=== PATIENT | female | born 1965 | race Caucasian/White ===

== ENCOUNTER 2020-07-25 20:35 | Emergency (ER) | payer MEDICAID ==
[~2020-07-25] VITALS: Ht 152.4 cm; Wt 93.9 kg
[~2020-07-25 20:35] MED LIST: FLUT1DSK19 PO; SINGULAIR
[2020-07-25 20:45] VITALS: BP 129/60
[2020-07-25] MEDS ORDERED: KETOROLAC 30 MG/ML VIAL IM ONE (21:05)
[2020-07-25 22:40] VITALS: BP 130/72
== END 2020-07-25 22:35 | disposition home or self-care (01) ==
LOC: MED 20:35
DX: M79.10 Myalgia, unspecified site (principal); G44.209 Tension-type headache, unspecified, not intractable; M45.2 Ankylosing spondylitis of cervical region
CPT/HCPCS: 70250; 72040; 93005; 96372; 99284; J1885

== ENCOUNTER 2020-08-19 17:48 | Emergency (ER) | payer MEDICAID ==
[~2020-08-19] VITALS: Ht 152.4 cm; Wt 93.4 kg
[2020-08-19 17:52] VITALS: BP 137/83
[2020-08-19 18:24] LABS: BASOPHILS # (AUTO) 0.1 K/uL (0.00-0.22); BASOPHILS % (AUTO) 0.8 % (0.0-2.0); EOSINOPHILS # (AUTO) 0.4 K/uL (0-0.4); EOSINOPHILS % (AUTO) 5.2 % (0.0-4.0); HEMATOCRIT 37.1 % (36-48); HEMOGLOBIN 12.4 g/dL (12.0-16.0); LYMPHOCYTES % (AUTO) 26.2 % (20.5-51.1); MEAN CORPUSCULAR HEMOGLOBIN 30 pg (27-31); MEAN CORPUSCULAR HGB CONC 33 g/dL (33-37); MEAN CORPUSCULAR VOLUME 91.3 fL (80-94); MONOCYTES # (AUTO) 0.8 K/uL (0.8-1.0); MONOCYTES % (AUTO) 10.9 % (1.7-9.3); NEUTROPHILS # (AUTO) 4.3 K/uL (1.8-7.7); NEUTROPHILS % (AUTO) 56.9 % (42.2-75.2); PLATELET COUNT (AUTO) 257 K/uL (140-450); RED BLOOD CELL COUNT(AUTO) 4.06 MIL/uL (4.20-5.40); RED CELL DISTRIBUTION WIDTH 13.9 % (11.6-13.7); WHITE BLOOD COUNT (AUTO) 7.6 K/uL (4.8-10.8)
[2020-08-19] MEDS ORDERED: MORPHINE SULFATE 4 MG/ML SYR IM ONE (18:40)
[2020-08-19] MEDS ORDERED: DICYCLOMINE HCL LIQUID 20 MG, ALUMINUM HYD/MAG/SIMETHICONE 30 ML, LIDOCAINE VISCOUS 2% ... PO ONE ×3 (18:40)
[2020-08-19] MEDS ORDERED: ONDANSETRON 4 MG ODT PO ONE (18:40)
[2020-08-19] MEDS ORDERED: LIDOCAINE VISCOUS 2% 20 ML UDC ONE (18:42)
[2020-08-19] MEDS ORDERED: ALUMINUM HYD/MAG/SIMETHICONE 30 ML UDC ONE (18:42)
[2020-08-19] MEDS ORDERED: DICYCLOMINE HCL LIQUID 10 MG/5 ML UDC ONE (18:43)
[2020-08-19 18:45] LABS: ALBUMIN 3.5 g/dL (3.4-5.0); ANION GAP 10.4 (8-16); CARBON DIOXIDE 29.4 mmol/L (21-32); CREATININE 0.9 mg/dL (0.6-1.3); POTASSIUM 3.8 mmol/L (3.5-5.1); TOTAL BILIRUBIN 0.1 mg/dL (0.0-1.0)
[2020-08-19] MEDS ORDERED: ACET-1182 PO (19:25)
[2020-08-19 19:55] VITALS: BP 155/88
== END 2020-08-19 19:50 | disposition home or self-care (01) ==
LOC: MED 17:48
DX: R07.89 Other chest pain (principal); Z98.890 Other specified postprocedural states
CPT/HCPCS: 36415; 71045; 80053; 83690; 84484; 85025; 93005; 96372; 99285; J2270; Q0162

== ENCOUNTER 2020-09-11 17:16 | Emergency (ER) | payer MEDICAID ==
[~2020-09-11] VITALS: Ht 162.6 cm; Wt 72.6 kg
[~2020-09-11 17:16] MED LIST changes: +ACET-1182 PO
[2020-09-11 17:19] VITALS: BP 153/72
[2020-09-11] MEDS ORDERED: KETOROLAC 30 MG/ML VIAL IM ONE (17:35)
[2020-09-11] MEDS ORDERED: PROCHLORPERAZINE 5 MG TAB PO ONE (18:10)
[2020-09-11 18:23] LABS: BASOPHILS # (AUTO) 0.1 K/uL (0.00-0.22); BASOPHILS % (AUTO) 0.6 % (0.0-2.0); EOSINOPHILS # (AUTO) 0.7 K/uL (0-0.4); EOSINOPHILS % (AUTO) 7.8 % (0.0-4.0); HEMATOCRIT 35.4 % (36-48); HEMOGLOBIN 11.7 g/dL (12.0-16.0); LYMPHOCYTES # (AUTO) 2.6 K/uL (2.5-16.5); LYMPHOCYTES % (AUTO) 31.3 % (20.5-51.1); MEAN CORPUSCULAR HEMOGLOBIN 31 pg (27-31); MEAN CORPUSCULAR HGB CONC 33 g/dL (33-37); MEAN CORPUSCULAR VOLUME 92.3 fL (80-94); MONOCYTES # (AUTO) 0.9 K/uL (0.8-1.0); MONOCYTES % (AUTO) 11.3 % (1.7-9.3); NEUTROPHILS # (AUTO) 4.1 K/uL (1.8-7.7); PLATELET COUNT (AUTO) 230 K/uL (140-450); RED BLOOD CELL COUNT(AUTO) 3.83 MIL/uL (4.20-5.40); RED CELL DISTRIBUTION WIDTH 13.9 % (11.6-13.7); WHITE BLOOD COUNT (AUTO) 8.4 K/uL (4.8-10.8)
[2020-09-11] MEDS ORDERED: PROCHLORPERAZINE 10 MG/2 ML VIAL IVP ONE (18:30)
[2020-09-11 18:35] LABS: ALBUMIN 3.5 g/dL (3.4-5.0); ANION GAP 13.4 (8-16); CARBON DIOXIDE 27.4 mmol/L (21-32); POTASSIUM 3.8 mmol/L (3.5-5.1); TOTAL BILIRUBIN 0.2 mg/dL (0.0-1.0)
[2020-09-11] MEDS ORDERED: NACL 0.9% 1,000 ML IV ONE (20:15)
[2020-09-11] MEDS ORDERED: MORPHINE SULFATE 4 MG/ML SYR IVP ONE (20:15)
[2020-09-11] MEDS ORDERED: ONDANSETRON 4 MG/2 ML VIAL IVP ONE (20:15)
[2020-09-11] MEDS ORDERED: METO-485 PO (21:25)
[2020-09-11] MEDS ORDERED: ACET-8386 PO (21:25)
[2020-09-11 21:52] VITALS: BP 139/69
== END 2020-09-11 21:52 | disposition home or self-care (01) ==
LOC: MED 17:16
DX: R51.9 Headache, unspecified (principal); R07.9 Chest pain, unspecified; Z79.899 Other long term (current) drug therapy
CPT/HCPCS: 36415; 70496; 71045; 80053; 84484; 85025; 93005; 96372; 96374; 96375; 99285; J0780; J1885; J2270; J2405; J7030; Q9967; 96361; Q0164

== ENCOUNTER 2020-11-27 17:02 | Emergency (ER) | payer MEDICAID ==
[~2020-11-27] VITALS: Ht 154.9 cm; Wt 74.4 kg
[~2020-11-27 17:02] MED LIST changes: +ACET-8386 PO; +METO-485 PO
[2020-11-27 17:09] VITALS: BP 149/77
--- NOTE | 2020-11-27 17:10 | NUR ---
PATIENT AMBULATED TO RESTROOM FOR COLLECTION OF URINE
--- NOTE | 2020-11-27 17:17 | NUR ---
PT C/O RUQ ABD PAIN, LOWER BACK PAIN THAT RADIATES TO BILATERAL LEGS X 1 HR. PT DENIES TRAUMA/INJURY. DENIES N/V/D. MEDHX: ANXIETY
--- NOTE | 2020-11-27 17:21 | NUR ---
DR RIVERA AT BEDSIDE EXAMINING PT
--- NOTE | 2020-11-27 17:22 | NUR ---
Dr. Waite is evaluating the patient at bedside.
--- NOTE | 2020-11-27 17:50 | NUR ---
ULTRASOUND AT BEDSIDE
[2020-11-27 18:07] LABS: ALBUMIN 3.4 g/dL (3.4-5.0); ANION GAP 15.8 (8-16); CARBON DIOXIDE 23.6 mmol/L (21-32); POTASSIUM 3.4 mmol/L (3.5-5.1); TOTAL BILIRUBIN 0.2 mg/dL (0.0-1.0)
[2020-11-27 18:10] LABS: BASOPHILS % (AUTO) 0.4 % (0.0-2.0); EOSINOPHILS # (AUTO) 0.3 K/uL (0-0.4); EOSINOPHILS % (AUTO) 2.5 % (0.0-4.0); HEMATOCRIT 36.5 % (36-48); HEMOGLOBIN 12.2 g/dL (12.0-16.0); LYMPHOCYTES # (AUTO) 3.1 K/uL (2.5-16.5); LYMPHOCYTES % (AUTO) 27.9 % (20.5-51.1); MEAN CORPUSCULAR HEMOGLOBIN 30 pg (27-31); MEAN CORPUSCULAR HGB CONC 33 g/dL (33-37); MEAN CORPUSCULAR VOLUME 90.8 fL (80-94); MONOCYTES # (AUTO) 1.1 K/uL (0.8-1.0); NEUTROPHILS # (AUTO) 6.6 K/uL (1.8-7.7); NEUTROPHILS % (AUTO) 59.2 % (42.2-75.2); PLATELET COUNT (AUTO) 270 K/uL (140-450); RED BLOOD CELL COUNT(AUTO) 4.02 MIL/uL (4.20-5.40); RED CELL DISTRIBUTION WIDTH 14.2 % (11.6-13.7); WHITE BLOOD COUNT (AUTO) 11.2 K/uL (4.8-10.8)
--- NOTE | 2020-11-27 18:20 | NUR ---
PATIENT TAKEN TO CT SCAN VIA WHEELCHAIR
[2020-11-27 19:24] LABS: APPEARANCE,URINE CLEAR (CLEAR); BILIRUBIN,URINE NEGATIVE (NEGATIVE); BLOOD, URINE 1+ (NEGATIVE); COLOR,URINE YELLOW (YELLOW); LEUKOCYTE ESTERASE ,URINE NEGATIVE (NEGATIVE); NITRITE, URINE NEGATIVE (NEGATIVE); PH,URINE 5.5 (5.0-9.0); UGLUCOSE NEGATIVE (NEGATIVE)
[2020-11-27 19:29] LABS: WBC,URINE 0-5 /HPF (0-5)
[2020-11-27] MEDS ORDERED: MIRABULK PO (19:56)
[2020-11-27 20:08] VITALS: BP 139/61
--- NOTE | 2020-11-27 20:08 | NUR ---
d/c with [facility]. d/c education given. opportunity to ask questions given and answered. rx of miralax given.
== END 2020-11-27 20:09 | disposition home or self-care (01) ==
LOC: MED 17:02
DX: R10.11 Right upper quadrant pain (principal); M54.6 Pain in thoracic spine; Z90.49 Acquired absence of other specified parts of digestive tract; Z98.890 Other specified postprocedural states; Z79.899 Other long term (current) drug therapy
CPT/HCPCS: 36415; 76705; 80053; 81001; 83690; 85025; 99285

== ENCOUNTER 2021-10-11 14:47 | Emergency (ER) | payer MEDICAID ==
[~2021-10-11] VITALS: Ht 154.9 cm; Wt 92.5 kg
[~2021-10-11 14:47] MED LIST changes: +MIRABULK PO
[2021-10-11 14:52] VITALS: BP 147/78
[2021-10-11] MEDS: KETOROLAC 30 MG/ML VIAL IM ONE (16:22)
[2021-10-11 16:30] LABS: BASOPHILS % (AUTO) 0.4 % (0.0-2.0); EOSINOPHILS # (AUTO) 0.1 K/uL (0-0.4); EOSINOPHILS % (AUTO) 2.2 % (0.0-4.0); HEMATOCRIT 34.3 % (36-48); HEMOGLOBIN 11.4 g/dL (12.0-16.0); LYMPHOCYTES # (AUTO) 1.9 K/uL (2.5-16.5); LYMPHOCYTES % (AUTO) 28.4 % (20.5-51.1); MEAN CORPUSCULAR HEMOGLOBIN 30 pg (27-31); MEAN CORPUSCULAR HGB CONC 33 g/dL (33-37); MEAN CORPUSCULAR VOLUME 89.9 fL (80-94); MONOCYTES % (AUTO) 14.3 % (1.7-9.3); NEUTROPHILS # (AUTO) 3.7 K/uL (1.8-7.7); NEUTROPHILS % (AUTO) 54.7 % (42.2-75.2); PLATELET COUNT (AUTO) 209 K/uL (140-450); RED BLOOD CELL COUNT(AUTO) 3.82 MIL/uL (4.20-5.40); RED CELL DISTRIBUTION WIDTH 14.3 % (11.6-13.7); WHITE BLOOD COUNT (AUTO) 6.7 K/uL (4.8-10.8)
[2021-10-11 16:45] LABS: LIPASE 173 U/L (73-393)
[2021-10-11 16:55] LABS: ALBUMIN 3.3 g/dL (3.4-5.0); ANION GAP 11.8 (8-16); CARBON DIOXIDE 26.9 mmol/L (21-32); CREATININE 0.9 mg/dL (0.6-1.3); POTASSIUM 3.7 mmol/L (3.5-5.1); TOTAL BILIRUBIN 0.2 mg/dL (0.0-1.0)
[2021-10-11 17:25] VITALS: BP 147/78
== END 2021-10-11 17:26 | disposition home or self-care (01) ==
LOC: MED 14:47
DX: R07.9 Chest pain, unspecified (principal); R53.1 Weakness; M54.6 Pain in thoracic spine
CPT/HCPCS: 36415; 71045; 80053; 83690; 83880; 84484; 85025; 93005; 96372; 99285; J1885